=== PATIENT | female | born 1990 | race Caucasian/White ===

== ENCOUNTER 2020-05-27 08:19 | Inpatient (IN) | payer MEDICAID ==
[2020-05-27] MEDS ORDERED: PENICILLIN G POTASSIUM 5,000,000 UNIT in DEXTROSE 5%-WATER 100 ML IV ONE (08:53)
[2020-05-27] MEDS ORDERED: MISOPROSTOL 0.2 MG TABLET ONE (09:42)
[2020-05-27] MEDS ORDERED: OXYTOCIN 10 UNIT/ML VIAL ONE (09:42)
[2020-05-27] MEDS ORDERED: LIDOCAINE 1% INJ-PF (10 MG/ML) 30 ML SDV ONE (09:42)
[2020-05-27] MEDS ORDERED: PENICILLIN G-K 5 MILLION UNIT VIAL ONE (09:43)
[2020-05-27] MEDS ORDERED: OXYTOCIN/0.9 % SODIUM CHLORIDE 30 UNIT/500 ML RTUINJ ONE (09:43)
--- NOTE | 2020-05-27 09:44 | Admission Physical ---
Datetime Report Generated by CPN: 05/27/2020 09:44 CURRENT ADMISSION Hx Assessment: The History has been Reviewed and is Current Chief Complaint: Other Chief Complaint Other: scheduled version found to be cephalic on arrival to unit verified by sono Indication for Induction: Other Indication for Induction- Other: unstable lie Admit Impression : Term, Intrauterine Admit Impression- Other: unstable lie Admit Plan: Admit to Unit; Initiate Labor Induction Protocol ALLERGIES Medication Allergies: No Medication Allergies: No Known Allergies (05/27/2020) Latex: No Latex Allergies OBSTETRICAL HISTORY : 2 Para: 0 Term: 0 : 0 SAB: 0 IAB: 0 Ectopic: 0 Livin Cesareans: 0 VBACs: 0 Multiple Births: 0 Gestational Diabetes: No Rh Sensitization: No Incompetent Cervix: No MARCUS: No Infertility: No ART Treatment: No Uterine Anomaly: No IUGR: No Hx Previous C/S: No Macrosomia: No Hx Loss/Stillborn: Yes PIH: No Hx : Yes Placenta Previa/Abruption: No Depression/PP Depression: Yes PTL/PROM: No Post Hemorrhage: No Current Procedures: Ultrasound Obstetrical History Comments: G1-IUFD G2-current SEE RECORDS Alcohol: No Marijuana : No Cocaine: No Other Illicit Drugs: No Cigarettes: Former Smoker. [id number] MEDICAL HISTORY Hosp/Surgery: Yes Anesthetic Complications: No Abnormal Pap Smear: No Psychiatric Disorders: Yes Other Medical Diseases: No Significant Family History: No Trauma/Violence : No Medical History Comments: Childbirth 1990 Double Hernia Surgery INFECTIOUS HISTORY Gonorrhea: No Genital Herpes: No Chlamydia: No Tuberculosis: No Syphilis: No Hepatitis: No HIV/AIDS Exposure: No Rash or Viral Illness: No HPV: No PHYSICAL EXAM General: Normal Heart: Normal Lungs: Normal Abdomen: Normal Extremities: Normal Pelvic Type: Adequate Physical Exam Comments: proven to 7lbs Vital Signs: Reviewed; Within Normal Limits VAGINAL EXAM Dilatation: 3 Effacement: long Station: -3 Contraction Comments: rare MEMBRANES Membranes: Intact FETUS A Monitoring: External US FHR Category: Category I (Annotations: Data stored by N on behalf of user) Presentation: Vertex Admit Comment: 29yo @ 39w6d into L_D for external cephalic version but found to be cephalic on U/S, will stay and be induced secondary to unstable lie. Pt is A pos, RI, GBS positive with hx of IUFD @ 39w2d; autopsy performed but no records available. Delivery record mentions no obvious cause. Other significant hx of bipolar disorder and obesity. otherwise uncomplicated. Plan is to start pitocin at this time as well as PCN. Dr. Holliday is the OB consultative sales associate today and aware of admission/status/plan. Pt asked questions and verbalized understanding. PLANS FOR LABOR AND DELIVERY Labor and Delivery: None Pain Management: Epidural Feeding Preference: Breast Benefit of Breast Feed Discussed: Yes Circumcision: N/A INFORMED CONSENT Assignment: Natalie Holliday MD Signature: with User ID: Immanuel : with User ID: Immanuel
[2020-05-27] MEDS ORDERED: OXYTOCIN/0.9 % SODIUM CHLORIDE 30 UNIT/500 ML RTUINJ IV PRN (09:45)
[2020-05-27] MEDS: RINGERS SOLUTION,LACTATED 1,000 ML IV PRN ×4 (09:55→18:36)
[2020-05-27 09:57] LABS: URINE AMPHETAMINES SCREEN NEGATIVE; URINE BARBITURATES SCREEN NEGATIVE; URINE BENZODIAZEPINES SCREEN NEGATIVE; URINE COCAINE SCREEN NEGATIVE; URINE METHADONE SCREEN NEGATIVE; URINE PHENCYCLIDINE SCREEN NEGATIVE
[2020-05-27 10:00] LABS: URINE MARIJUANA (THC) SCREEN UNCONFIRMED POSITIVE
[2020-05-27 10:02] LABS: ABSOLUTE EOSINOPHILS # (AUTO) 0.2 10^3/uL (0.0-0.6); ABSOLUTE LYMPHOCYTES (AUTO) 2.5 10^3/uL (0.5-4.7); ABSOLUTE MONOCYTES (AUTO) 0.9 10^3/uL (0.1-1.4); ABSOLUTE NEUT (AUTO) 8.6 10^3/uL (1.7-8.2); BASOPHILS % (AUTO) 0.2 % (0-2); EOSINOPHILS % (AUTO) 1.3 % (0-6); HEMATOCRIT 33.7 % (36.0-47.0); HEMOGLOBIN 11.7 g/dL (12.0-15.5); LYMPHOCYTES % (AUTO) 20.7 % (13-45); MEAN CORPUSCULAR HEMOGLOBIN 29.9 pg (27.0-33.4); MEAN CORPUSCULAR HGB CONC 34.7 g/dL (32.0-36.0); MEAN CORPUSCULAR VOLUME 86 fl (80-97); MONOCYTES % (AUTO) 7.1 % (3-13); PLATELET COUNT 291 10^3/uL (150-450); RED BLOOD COUNT 3.91 10^6/uL (3.72-5.28); RED CELL DISTRIBUTION WIDTH 14.3 % (11.5-14.0); SEGMENTED NEUTROPHILS % (AUTO) 70.7 % (42-78); TOTAL CELLS COUNTED % (AUTO) 100 %; WHITE BLOOD COUNT 12.2 10^3/uL (4.0-10.5)
[2020-05-27] MEDS: PENICILLIN G POTASSIUM 2,500,000 UNIT in DEXTROSE 5%-WATER 50 ML IV SCH ×3 (14:00→22:21)
--- NOTE | 2020-05-27 16:09 | L&D Progress Notes ---
PROGRESS NOTES Datetime Report Generated by CPN: 05/27/2020 16:09 PROGRESS NOTE Impression Other: IUP @ [id number] Procedures: Artificial ROM; Sterile Vag Exam Plan: Continue Present Management; Induction Informed Consent Obtained: Vaginal Delivery; Induction of Labor; Risks, Benefits and Alternatives Discussed Vital Signs : Reviewed; Within Normal Limits Comment: S: comfortable, reports minimal discomfort with contractions, plans on epidural when pain becomes intolerable O: VSS, cat I tracing, pit @ 10mu/min, cervix as stated A: IUP @ [id number] secondary to unstable lie-stable, progressing AROM-clear fluid moderate amount P: continue IOL, epidural prn, anticipate delivery VAGINAL EXAM Dilatation: 3 Effacement: long Station: -3 Contractions: rare LAST VAGINAL EXAM-NURSING Nursing Exam Dilitation: 3-4 Nursing Exam Effacement: 70 Nursing Exam Station: -1 Nursing Exam Contractions: toco adjusted MEMBRANES Membranes: Ruptured Amniotic Fluid Color: Clear FETUS A Monitoring: External US FHR Category: Category I Presentation: Vertex SIGNATURE SIGNATURE: [id number] Assignment: Natalie Holliday MD Signature: with User ID: [email or web address] : with User ID: [email or web address]
[2020-05-27] MEDS ORDERED: EPHEDRINE SULFATE INJ 50 MG/1 ML AMPULE ONE (17:34)
[2020-05-27] MEDS ORDERED: ROPIVACAINE HCL 0.2% INJ/PF (2 MG/ML) 20 ML SDV ONE (17:35)
[2020-05-27] MEDS ORDERED: FENTANYL/BUPIVACAINE/NS/PF 300 MCG/150 ML RTUINJ EPI ONE (17:35)
[2020-05-28] MEDS ORDERED: CITRIC ACID/SODIUM CITRATE ORAL SOLN 15 ML UDCUP ONE (01:30)
[2020-05-28] MEDS ORDERED: CEFAZOLIN 2 GM/D5W RTU 2 GM/50 ML RTUPB IV ONE (01:31)
--- NOTE | 2020-05-28 01:42 | L&D Progress Notes ---
PROGRESS NOTES Datetime Report Generated by CPN: 05/28/2020 01:42 PROGRESS NOTE Impression: Arrest of Dilatation/Descent Impression Other: IUP @ [id number] Procedures: Artificial ROM; Sterile Vag Exam Plan: Continue Present Management; Induction Informed Consent Obtained: Section Delivery Vital Signs : Reviewed; Within Normal Limits Comment: The pt has not progressed in labor. The baby is not tolerating the pitocin well. At this point we have stopped the pitocin because of late decells. We will proceed with a c section at this time. VAGINAL EXAM Dilatation: 3 Effacement: long Station: -3 Contractions: rare LAST VAGINAL EXAM-NURSING Nursing Exam Dilitation: 4.0 Nursing Exam Effacement: 50 Nursing Exam Station: -2 Nursing Exam Contractions: [place] adjusted RN at bedside MEMBRANES Membranes: Ruptured Amniotic Fluid Color: Clear FETUS A Monitoring: External US FHR Category: Category I Presentation: Vertex SIGNATURE SIGNATURE: [id number] Assignment: Natalie Holliday MD Signature: with User ID: Xavier : with User ID: Xavier
[2020-05-28] MEDS ORDERED: DIPH/PERTUSS(ACELL)/TETANUS VAC/PF 0.5 ML SYR (>=10YO) IM PRN ×2 (01:47→15:30)
[2020-05-28] MEDS ORDERED: PROMETHAZINE HCL INJ 25 MG/1 ML VIAL IV PRN ×4 (01:47→15:30)
[2020-05-28] MEDS ORDERED: ACETAMINOPHEN 1,000 MG/100 ML RTUPB IV PRN (01:47)
[2020-05-28] MEDS ORDERED: SIMETHICONE 80 MG TAB.CHEW PO PRN (01:47)
[2020-05-28] MEDS ORDERED: RINGERS SOLUTION,LACTATED 1,000 ML IV PRN (01:47)
[2020-05-28] MEDS ORDERED: OXYCODONE-ACETAMINOPHEN 5-325 MG TABLET PO PRN ×3 (01:47→02:46)
[2020-05-28] MEDS ORDERED: MEASLES,MUMPS&RUBELLA VACC/PF 0.5 ML VIAL SUBCUT PRN ×2 (01:47→15:30)
[2020-05-28] MEDS ORDERED: HYDROMORPHONE HCL INJ/PF 2 MG/ML AMPULE IV PRN (01:47)
[2020-05-28] MEDS ORDERED: ACETAMINOPHEN 325 MG TABLET PO PRN (01:47)
[2020-05-28] MEDS ORDERED: OXYTOCIN/0.9 % SODIUM CHLORIDE 30 UNIT/500 ML RTUINJ IV PRN (01:47)
[2020-05-28] MEDS ORDERED: OXYTOCIN 10 UNIT/ML VIAL ONE (01:56)
[2020-05-28] MEDS ORDERED: EPHEDRINE SULFATE INJ 50 MG/1 ML AMPULE ONE (01:56)
[2020-05-28] MEDS ORDERED: MIDAZOLAM 2 MG/2 ML INJ ONE (01:56)
[2020-05-28] MEDS ORDERED: ACETAMINOPHEN 1,000 MG/100 ML RTUPB IV ONE (01:56)
[2020-05-28] MEDS ORDERED: ONDANSETRON HCL INJ/PF 4 MG/2 ML SDV ONE (01:56)
[2020-05-28] MEDS ORDERED: FENTANYL CITRATE INJ/PF 100 MCG/2 ML AMPUL ONE (01:56)
[2020-05-28] MEDS ORDERED: KETOROLAC TROMETHAMINE INJ/PF 30 MG/1 ML SDV ONE ×2 (01:56→03:46)
[2020-05-28] MEDS ORDERED: PHENYLEPHRINE HCL INJ/PF 10 MG/1 ML SDV ONE (01:57)
[2020-05-28] MEDS ORDERED: LIDOCAINE 2% INJ-PF (20 MG/ML) 10 ML AMPUL ONE (01:57)
[2020-05-28] MEDS ORDERED: FENTANYL CITRATE INJ/PF 100 MCG/2 ML AMPUL IV PRN ×3 (02:46)
[2020-05-28] MEDS ORDERED: ONDANSETRON HCL INJ/PF 4 MG/2 ML SDV IV PRN (02:46)
[2020-05-28] MEDS ORDERED: MEPERIDINE HCL/PF INJ 25 MG/1 ML DISP.SYRIN IV PRN (02:46)
[2020-05-28] MEDS ORDERED: DIPHENHYDRAMINE HCL 50 MG/ML VIAL IV PRN (02:46)
[2020-05-28] MEDS ORDERED: MORPHINE SULFATE 10 MG/ML INJ IV PRN (02:46)
--- NOTE | 2020-05-28 03:05 | Operative Report ---
Operative Report DATE OF SURGERY: 05/28/20 PREOPERATIVE DIAGNOSIS: Arrest of dilatation now with repetitive late decelerat ions POSTOPERATIVE DIAGNOSIS: Same. Patient's pelvis at the time of surgery feels quite small. I would not recommend further attempt at labor. OPERATION: Primary via low transverse uterine incision SURGEON: SARITA CARBAJAL ANESTHESIA: Epidural TISSUE REMOVED OR ALTERED: Placenta COMPLICATIONS: None ESTIMATED BLOOD LOSS: 500 cc INTRAOPERATIVE FINDINGS: Viable female crying at delivery. Left tube and ovary are normal the right tube and ovary are somewhat adhesed behind the uterus. PROCEDURE: Patient was taken to the OR and placed in supine position after her spinal anesthesia. She is prepared and draped in sterile fashion. Tracy was placed for drainage of the bladder. Low transverse incision was made and carried down the level of the fascia. The fascial incision was made with knife and extended bilaterally with curved Berman scissors. The fascia was off the rectus muscles using sharp and blunt dissection. The rectus muscles are in the midline. The peritoneum was entered without incident. Bladder blade was placed in uterine segment was identified. A low transverse incision was made creating a bladder flap. Bladder blade was placed low transverse uterine incision was made with the knife and extended with fingertips. The baby was delivered with some fundal pressure. Mouth and nose were suctioned free. The cord is doubly clamped and cut. Baby is passed off to the quilt stuffer in attendance. The placenta was manually extracted with trailing membranes. The uterus was externalized wrapped in a moist lap sponge. Uterine contents wiped free. Uterus was closed with a running locking layer of 0 chromic suture using the second layer to imbricate the first completing a double layer closure of the uterus. The serosa was closed with a running 2-0 chromic stitch. The pelvis was irrigated and suctioned free of fluid the uterus was replaced in the abdomen. The abdominal wall peritoneum was closed with running 2-0 chromic stitch. Fascia was closed with a running 0 Vicryl in 2 segments. Francia's layer was brought together with 0 plain gut stitch and the skin was closed with running subcuticular 4-0 undyed Vicryl stitch. The wound was dressed mother and baby did well.
[2020-05-28] MEDS ORDERED: MORPHINE SULFATE 10 MG/ML INJ ONE (03:46)
[2020-05-28] MEDS ORDERED: OXYTOCIN/0.9 % SODIUM CHLORIDE 30 UNIT/500 ML RTUINJ ONE (04:11)
--- NOTE | 2020-05-28 05:20 | Delivery Summary ---
Del Sum A-C Datetime Report Generated by CPN: 05/28/2020 05:20 DELIVERY PERSONNEL DELIVERY PERSONNEL: [id number] Delivery Doctor:: Natalie Holliday MD PORTRAIT CONSULTANT:: No Torres CRNA Labor and Delivery Nurse:: Maile Cormier RN Line Service Supervisor:: Maile Cormier RN Neonatal Nurse Practitioner:: KAROL Sharp Nursery Nurse:: Beulah Ramirez RN Licensing Officer/SUPERVISOR RECORDS CHANGE: Danielle Deleon SWEEPING COMPOUND BLENDER Licensing Officer/SUPERVISOR RECORDS CHANGE: Apple Pineda, ST MATERNAL INFORMATION Delivery Anesthesia: Epidural Medications After Delivery: Pitocin 30 Units in 500ml NS/D5W Delivery QBL: 830 Maternal Complications: None LABOR SUMMARY EDC: 05/28/2020 00:00 No. Babies in Womb: 1 Attempted: No Labor Anesthesia: Epidural LABOR INFORMATION Reason for Induction: Other Reason for Induction- Other: breech to vertex Oxytocin: Induction Group B Beta Strep: Positive Antibiotics # of Doses: 4 Antibiotics Time of Last Dose: 05/27/2020 22:21 Name of Antibiotic Given: Penicillin G Steroids Given: None Reason Steroids Not Administered: Not Applicable MEMBRANES Membranes Rupture Method: Artificial Rupture of Membranes: 05/27/2020 15:10 Length of Rupture (hr): 11.28 Amniotic Fluid Color: Clear Amniotic Fluid Amount: Moderate Amniotic Fluid Odor: Normal STAGES OF LABOR Stage 3 hr: 0 Stage 3 min: 1 VAGINAL DELIVERY Episiotomy: None Laceration #1: None Laceration Extension #1: N/A Laceration Repair: Not Applicable Sponge Count Correct: N/A Sharps Count Correct: N/A CSECTION DELIVERY Primary Indication: Nonreassuring Status CSection Urgency: Non-Scheduled CSection Incidence: Primary Labor: No Labor Elective: Nonelective CSection Incision: Lower Uterine Transverse BABY A INFORMATION Delivery Date/Time: 05/28/2020 02:27 Method of Delivery: Nurse Controlled Delivery: No Born in Route : No : N/A Forceps: N/A Vacuum Extraction: N/A Shoulder Dystocia : No PRESENTATION/POSITION BABY A Presentation: Cephalic Cephalic Presentation: Vertex Breech Presentation: N/A PLACENTA INFORMATION BABY A Placenta Delivery Time : 05/28/2020 02:28 Placenta Method of Delivery: Manual Removal Placenta Status: Delivered SCORES BABY A Heart Rate 1 min: >100 bpm Resp Effort 1 min: Good Cry Reflex Irritability 1 min: Cough or Sneeze or Pulls Away Muscle Tone 1 min: Active Motion Color 1 min: Body Cumings, Extremities Blue Resuscitation Effort 1 min: Tactile Stimulation SCORE 1 MIN: 9 Heart Rate 5 min: >100 bpm Resp Effort 5 min: Good Cry Reflex Irritability 5 min: Cough or Sneeze or Pulls Away Muscle Tone 5 min: Active Motion Color 5 min: Body Cumings, Extremities Blue SCORE 5 MIN: 9 INFANT INFORMATION BABY A Gestational Age at Delivery: 40.0 Gestational Status: Full Term- 39- 40.6 Weeks Infant Outcome : Liveborn Infant Condition : Stable Sex: Female WEIGHT/LENGTH BABY A Infant Birthweight (gm): 3225 Weight (lb): 7 Weight (oz): 2 Length (in): 19.75 Infant Length (cm): 50.17 CORD INFORMATION BABY A No. Cord Vessels: 3 Nuchal Cord : N/A Cord Blood Taken: Yes-For Storage (Mom's Blood type +) ASSESSMENT BABY A Skin to Skin: Yes Transferred To: Nursery BABY B INFORMATION : N/A
--- NOTE | 2020-05-28 05:20 | Birth Certificate Data ---
Cert Data Datetime Report Generated by CPKush: 05/28/2020 05:20 CERTIFICATE DATA 47a. Care: Yes (05/27/2020 08:21:Sherlyn Lara RN) 47b. Date of First Visit: 10/17/2019 00:00 (05/27/2020 08:21:Sherlyn Lara RN) 47c. Date of Last Visit: 04/21/2020 00:00 (05/27/2020 08:21:Sherlyn Lara RN) 47d. Number of Visits: 15 (05/27/2020 08:21:Sherlyn Lara RN) 48a. Number of Prev Live Births: 0 (05/27/2020 08:21:Sherlyn Lara RN) 48b. Now Livin (05/27/2020 08:21:Sherlyn Lara RN) 48c. Live Births Now : 0 (05/27/2020 08:21:QS system process) 48e. Losses: 1 (05/27/2020 08:21:Sherlyn Lara RN) 48f. Date of Last Preg Loss: 11/21/2010 00:00 (05/27/2020 08:21:Sherlyn Lara RN) RISK FACTORS IN THIS 49a. Diabetes: No (05/27/2020 08:21:Sherlyn Lara RN) 49b. Hypertension: No (05/27/2020 08:21:Sherlyn Lara RN) 49c. Previous Births: 0 (05/27/2020 08:21:Sherlyn Lara RN) 49d. Stillborns: Yes (05/27/2020 08:21:Sherlyn Lara RN) 49d. IUGR: No (05/27/2020 08:21:Sherlyn Lara RN) 49e. Infertility Treatment: No (05/27/2020 08:21:Sherlyn Lara RN) 49f. Previous Cesareans: 0 (05/27/2020 08:21:Sherlyn Lara RN) Mother's Height 50b. Height Inches: 66 (05/28/2020 04:52:QS system process) Mother's Weight 51a. Pre- Weight (lbs): 197 (05/27/2020 08:21:Sherlyn Lara RN) 51b. Weight at Delivery (lbs): 255 (05/28/2020 04:52:QS system process) 52. Dt Last Normal Menses Began: 07/25/2019 00:00 (05/27/2020 08:21:Sherlyn Lara RN) Infections Present/Treated 53a. Gonorrhea: No (05/27/2020 08:21:Sherlyn Lara RN) Results this Hospital Visit : Negative (05/27/2020 08:21:Sherlyn Lara RN) 53b. Syphilis: No (05/27/2020 08:21:Sherlyn Lara RN) Results this Hospital Visit: NONREACTIVE (05/27/2020 09:50:QS system process) 53c. Chlamydia: No (05/27/2020 08:21:Sherlyn Lara RN) Results this Hospital Visit: Negative (05/27/2020 08:21:Sherlyn Lara RN) 53d. Hepatitis B: No (05/27/2020 08:21:Sherlyn Lara RN) Results this Hospital Visit: Negative (05/27/2020 08:21:Sherlyn Lara RN) 53e. Hepatitis C: Negative (05/27/2020 08:21:Sherlyn Lara RN) 53h. Mother Tested for HBsAG: Yes (05/27/2020 08:21:Sherlyn Lara RN) 53i. Date Tested: 10/17/2019 00:00 (05/27/2020 08:21:Sherlyn Lara RN) 53j. Test Result: Negative (05/27/2020 08:21:Sherlyn Lara RN) Obstetric Procedures 54a, b, c. Obstetric Procedures: Ultrasound (05/27/2020 08:21:Sherlyn Lara RN) Cigarette Smoking Cigarette Smoking: Former Smoker. [id number] (05/27/2020 08:21:Sherlyn Lara RN) 55a. 3 Months Before Preg - Ci (05/27/2020 08:21:Sherlyn Lara RN) 55b. 1st Trimester of Preg- Ci (05/27/2020 08:21:Sherlyn Lara RN) 55c. 2nd Trimester of Preg- Ci (05/27/2020 08:21:Sherlyn Lara RN) 55d. 3rd Trimester of Preg- Ci (05/27/2020 08:21:Sherlyn Lara RN) Onset of Labor 56a. PROM >12 Hrs: 11.28 (05/27/2020 08:21:QS system process) 57a. Induction of Labor: Induction (05/27/2020 08:21:Sherlyn Lara RN) 57c. Non-Vertex Presentation A: Vertex (05/27/2020 08:21:Maile Cormier RN) 57d. Steroids - Lung Mat: None (05/27/2020 08:21:Sherlyn Lara RN) 57d. Steroids - Lung Mat: Not Applicable (05/27/2020 08:21:Sherlyn Lara RN) 57e. Antibiotics During Labor: 05/27/2020 22:21 (05/27/2020 08:21:Maile Cormier RN) 57g. Moderate/Heavy Meconium: Clear (05/27/2020 15:10:Sherlyn Lara RN) 57h. Intolerance of Labor: Nonreassuring Status (05/27/2020 08:21:Maile Cormier RN) 57i. Epidural/Spinal Anesthesia: Epidural (05/27/2020 08:21:Maile Cormier RN) Method of Delivery 58a. Forceps - Unsuccessful A: N/A (05/27/2020 08:21:Maile Cormier RN) 58b. Vacuum - Unsuccessful A: N/A (05/27/2020 08:21:Maile Cormier RN) 58c. Presentation at 58c. Presentation at - A : Vertex (05/27/2020 08:21:Maile Cormier RN) 58c. Presentation at - A : N/A (05/27/2020 08:21:Maile Cormier RN) 58c. Presentation at - A : Cephalic (05/27/2020 20:15:Maile Cormier RN) Final Route and Method of Del 58d. Baby A Route/Delivery: (05/27/2020 08:21:Kirby Moran HOTEL OPERATIONS MANAGER) 58e. Trial of Labor Attempted: No (05/27/2020 08:21:Sherlyn Lara RN) 58e. Trial of Labor Attempted A: N/A (05/27/2020 08:21:Sherlyn Lara RN) 58e. Trial of Labor Attempted B: N/A (05/27/2020 08:21:Sherlyn Lara RN) Maternal Morbidity 59b. 3rd or 4th Degree Lacs: None (05/27/2020 08:21:Maile Cormier RN) Birthweight Baby A: 3225 (05/27/2020 08:21:Pearl Coker RN) 60a. Pounds : 7 (05/27/2020 08:21:QS system process) 60b. Ounces: 2 (05/27/2020 08:21:QS system process) 61. GA at Delivery Baby A: 40.0 (05/27/2020 08:21:Maile Cormier RN) : Full Term- 39- 40.6 Weeks (05/27/2020 08:21:QS system process) 62a. 5 Minute Baby A: 9 (05/27/2020 08:21:QS system process)
[2020-05-28] MEDS: OXYCODONE-ACETAMINOPHEN 5-325 MG TABLET PO PRN ×3 (05:50→19:58)
[2020-05-28] MEDS: IBUPROFEN 800 MG TABLET PO SCH ×2 (07:34→13:16)
[2020-05-28] MEDS: KETOROLAC TROMETHAMINE INJ/PF 30 MG/1 ML SDV IV SCH ×3 (07:38→22:58)
--- NOTE | 2020-05-28 08:51 | PDOC PROGRESS REPORT ---
Subjective-OB Progress Note for:: 05/28/20 Physical Exam (OB) Vital Signs: Temp Pulse Resp BP Pulse Ox 97.5 F 69 18 124/65 98 05/28/20 08:30 05/28/20 08:30 05/28/20 08:30 05/28/20 08:30 05/28/20 08:30 Intake & Output 05/27/20 05/28/20 05/29/20 06:59 06:59 06:59 Intake Total 1085 1000 Balance 1085 1000 Weight 116.2 kg - Maternal Morbidity 59. Maternal Morbidity (serious complications experinced by the mother associated with labor and delivery: None of the above - Lochia Lochia Amount: Scant < 10 ml Lochia Color: Rubra/Red - Abdomen Description: Round Hernia Present: No Flatus Presence: Absent Stool: No Fundal Description: Firm, Midline Fundal Height: u/u - u/2 Objective-Diagnostic Laboratory: 05/27/20 09:50 05/27/20 05/27/20 09:50 09:50 WBC 12.2 H RBC 3.91 Hgb 11.7 L Hct 33.7 L MCV 86 MCH 29.9 MCHC 34.7 RDW 14.3 H Plt Count 291 Seg Neutrophils % 70.7 Blood Type A POSITIVE Antibody Screen NEGATIVE Assessment and Plan(PN) - Time Spent with Patient Time with patient: Less than 15 minutes Medications reviewed and adjusted accordingly: Yes - Disposition Anticipated Discharge Disposition: Home, Self Care Anticipated Discharge Timeframe: within 48 hours
[2020-05-28] MEDS: PRENATAL VITAMIN W DHA CAPSULE PO SCH (10:46)
[2020-05-28] MEDS: DOCUSATE SODIUM 100 MG CAPSULE PO SCH ×2 (10:46→17:17)
[2020-05-29] MEDS: OXYCODONE-ACETAMINOPHEN 5-325 MG TABLET PO PRN ×4 (00:56→20:34)
[2020-05-29] MEDS: IBUPROFEN 800 MG TABLET PO SCH ×4 (05:39→19:02)
[2020-05-29 06:51] LABS: HEMATOCRIT 25.2 % (36.0-47.0); MEAN CORPUSCULAR HGB CONC 34.4 g/dL (32.0-36.0); MEAN CORPUSCULAR VOLUME 87 fl (80-97); PLATELET COUNT 250 10^3/uL (150-450); RED BLOOD COUNT 2.88 10^6/uL (3.72-5.28); RED CELL DISTRIBUTION WIDTH 14.4 % (11.5-14.0); WHITE BLOOD COUNT 12.1 10^3/uL (4.0-10.5)
[2020-05-29 06:52] LABS: HEMOGLOBIN 8.7 g/dL (12.0-15.5)
[2020-05-29] MEDS: DOCUSATE SODIUM 100 MG CAPSULE PO SCH ×2 (09:53→19:02)
[2020-05-29] MEDS: PRENATAL VITAMIN W DHA CAPSULE PO SCH (09:53)
--- NOTE | 2020-05-29 13:46 | PDOC PROGRESS REPORT ---
Subjective-OB Progress Note for:: 05/29/20 Subjective: reports bleeding slowing, pain controlled with current meds. denies needs. Physical Exam (OB) Vital Signs: Temp Pulse Resp BP Pulse Ox 97.8 F 86 18 134/66 H 100 05/29/20 12:00 05/29/20 12:00 05/29/20 12:00 05/29/20 12:00 05/29/20 12:00 Intake & Output 05/28/20 05/29/20 05/30/20 06:59 06:59 06:59 Intake Total 1085 5030 1500 Output Total 2400 Balance 1085 2630 1500 Weight 116.2 kg - Dressing Removed: No Incision: Well Approximated Closure Type: opsite - Maternal Morbidity 59. Maternal Morbidity (serious complications experinced by the mother associated with labor and delivery: None of the above - Abdomen Description: Tender, Soft Hernia Present: No Fundal Description: Firm, Midline Fundal Height: u/u - u/2 - Abdominal Distension: No distension - Extremities Lower extremities: Waylon's sign - neg Calf: Normal, Nontender Objective-Diagnostic Laboratory: 05/29/20 06:36 05/29/20 06:36 WBC 12.1 H RBC 2.88 L Hgb 8.7 L D Hct 25.2 L MCV 87 MCH 30.0 MCHC 34.4 RDW 14.4 H Plt Count 250 Assessment and Plan(PN) - Assessment and Plan (1) Delivery by emergency caesarean section Is this a current diagnosis for this admission?: Yes (2) Encounter for induction of labor Is this a current diagnosis for this admission?: Yes (3) History of bipolar disorder Is this a current diagnosis for this admission?: Yes (4) Non-reassuring electronic monitoring tracing Is this a current diagnosis for this admission?: Yes - Time Spent with Patient Time with patient: Less than 15 minutes Medications reviewed and adjusted accordingly: Yes - Disposition Anticipated Discharge Disposition: Home, Self Care Anticipated Discharge Timeframe: within 48 hours
[2020-05-29] MEDS: PENICILLIN G POTASSIUM 2,500,000 UNIT in DEXTROSE 5%-WATER 50 ML IV SCH (20:14)
[2020-05-30] MEDS: IBUPROFEN 800 MG TABLET PO SCH ×2 (00:49→05:28)
[2020-05-30] MEDS: OXYCODONE-ACETAMINOPHEN 5-325 MG TABLET PO PRN ×3 (00:51→09:44)
[2020-05-30] MEDS: PRENATAL VITAMIN W DHA CAPSULE PO SCH (09:44)
[2020-05-30] MEDS: DOCUSATE SODIUM 100 MG CAPSULE PO SCH (09:44)
--- NOTE | 2020-05-30 10:48 | PDOC DISCHARGE SUMMARY ---
Impression - Admit/DC Date/PCP Admission Date/Primary Care Provider: 05/27/20 09:05 SARITA CARBAJAL MD Discharge Date: 05/30/20 - Discharge Diagnosis (1) Delivery by emergency caesarean section Is this a current diagnosis for this admission?: Yes (2) Encounter for induction of labor Is this a current diagnosis for this admission?: Yes (3) History of bipolar disorder Is this a current diagnosis for this admission?: Yes (4) Non-reassuring electronic monitoring tracing Is this a current diagnosis for this admission?: Yes - Additional Information Discharge Diet: Regular Discharge Activity: Balance Activity w/Rest, No Lifting Over 10 Pounds, No Lifting/Push/Pulling, Pelvic Rest, No tub bath Referrals: SARITA CARBAJAL MD [Primary Care Provider] - Prescriptions: Ferrous Sulfate [Ferrousul] 325 mg PO DAILY #30 tablet Ibuprofen [Motrin 800 mg Tablet] 800 mg PO Q8HP PRN #90 tablet PRN Reason: Oxycodone HCl/Acetaminophen [Percocet 5-325 mg Tablet] 1 tab PO Q4HP PRN #30 tablet PRN Reason: Home Medications: Pnv No.95/Ferrous Fum/Folic AC [ Caplet] 1 tab PO DAILY 05/27/20 Ferrous Sulfate [Ferrousul] 325 mg PO DAILY #30 tablet 05/30/20 Ibuprofen [Motrin 800 mg Tablet] 800 mg PO Q8HP PRN #90 tablet 05/30/20 Oxycodone HCl/Acetaminophen [Percocet 5-325 mg Tablet] 1 tab PO Q4HP PRN #30 tablet 05/30/20 Hospital Course 59. Maternal Morbidity (serious complications experinced by the mother associated with labor and delivery: None of the above Results Laboratory Results: WBC 12.1 10^3/uL (4.0-10.5) H 05/29/20 06:36 RBC 2.88 10^6/uL (3.72-5.28) L 05/29/20 06:36 Hgb 8.7 g/dL (12.0-15.5) L D 05/29/20 06:36 Hct 25.2 % (36.0-47.0) L 05/29/20 06:36 MCV 87 fl (80-97) 05/29/20 06:36 MCH 30.0 pg (27.0-33.4) 05/29/20 06:36 MCHC 34.4 g/dL (32.0-36.0) 05/29/20 06:36 RDW 14.4 % (11.5-14.0) H 05/29/20 06:36 Plt Count 250 10^3/uL (150-450) 05/29/20 06:36 Lymph % (Auto) 20.7 % (13-45) 05/27/20 09:50 Gates % (Auto) 7.1 % (3-13) 05/27/20 09:50 Eos % (Auto) 1.3 % (0-6) 05/27/20 09:50 Baso % (Auto) 0.2 % (0-2) 05/27/20 09:50 Absolute Neuts (auto) 8.6 10^3/uL (1.7-8.2) H 05/27/20 09:50 Absolute Lymphs (auto) 2.5 10^3/uL (0.5-4.7) 05/27/20 09:50 Absolute Monos (auto) 0.9 10^3/uL (0.1-1.4) 05/27/20 09:50 Absolute Eos (auto) 0.2 10^3/uL (0.0-0.6) 05/27/20 09:50 Absolute Basos (auto) 0.0 10^3/uL (0.0-0.2) 05/27/20 09:50 Seg Neutrophils % 70.7 % (42-78) 05/27/20 09:50 Urine Opiates Screen NEGATIVE 05/27/20 08:30 Urine Methadone Screen NEGATIVE 05/27/20 08:30 Ur Barbiturates Screen NEGATIVE 05/27/20 08:30 Ur Phencyclidine Scrn NEGATIVE 05/27/20 08:30 Ur Amphetamines Screen NEGATIVE 05/27/20 08:30 U Benzodiazepines Scrn NEGATIVE 05/27/20 08:30 Urine Cocaine Screen NEGATIVE 05/27/20 08:30 U Marijuana (THC) Screen UNCONFIRMED POSITIVE 05/27/20 08:30 RPR NONREACTIVE (NONREACTIVE) 05/27/20 09:50 Blood Type A POSITIVE 05/27/20 09:50 Antibody Screen NEGATIVE 05/27/20 09:50 Plan Plan of Treatment: follow up in one week at [facility] for incision check
[2020-05-30 11:19] VITALS: BP 123/72
== END 2020-05-30 13:15 | disposition home or self-care (01) | DRG 788 ==
LOC: LC 08:19 → LR 09:05 → 2S 05-28 04:52
PROVIDERS: ADMIT Obstetrics & Gynecology; ATTEND Obstetrics & Gynecology
PROC: 10D00Z1 Extraction of Products of Conception, Low, Open Approach (ICD-10-PCS; principal; 2020-05-28)
DX: O32.0XX0 Maternal care for unstable lie, not applicable or unspecified (principal); O99.824 Streptococcus B carrier state complicating childbirth; O76 Abnormality in fetal heart rate and rhythm complicating labor and delivery; O62.1 Secondary uterine inertia; O99.344 Other mental disorders complicating childbirth; F31.9 Bipolar disorder, unspecified; O99.214 Obesity complicating childbirth; E66.9 Obesity, unspecified; Z37.0 Single live birth; Z87.59 Personal history of other complications of pregnancy, childbirth and the puerperium; Z87.891 Personal history of nicotine dependence
CPT/HCPCS: 1967; 1968; 36415; 59025; 80307; 80349; 85025; 85027; 86592; 86850; 86900; 86901; 94760; 94799; 99140; G0480; J0131; J0690; J1170; J1885; J2250; J2270; J2370; J2405; J2540; J2590; J2795; J3010; J3490; J7060; J7120